=== PATIENT | male | born 1945 | race Caucasian/White ===

== ENCOUNTER 2020-02-13 11:45 | Inpatient (IN) ==
[2020-02-13] MEDS ORDERED: GuaiFENesin Liq 200 MG/10 ML UDC PO PRN (16:03)
[2020-02-13] MEDS: Nystatin SUSP 5 ML UD.LIQ PO SCH ×2 (16:45→19:44)
[2020-02-13] MEDS: Carbamide Peroxide 150 DROP/15 ML BOTTLE BOTH EARS SCH (19:44)
[2020-02-14] MEDS: *HR* Enoxaparin 40 MG/0.4 ML SYRINGE SQ SCH (05:19)
[2020-02-14 06:08] LABS: Basophils # 0.2 K/mcL (0.0-0.2); Basophils % 1.1 %; Eosinophils # 0.8 K/mcL (0.0-0.6); Eosinophils % 6.1 %; Hematocrit 38.1 % (37.5-50.1); Hemoglobin 12.3 g/dL (12.9-16.9); Immature Granulocytes % 0.4 % (0-4); Lymphocytes # 1.9 K/mcL (0.6-4.6); Lymphocytes % 14.3 %; Mean Corpuscular HGB Conc 32.3 g/dL (31.6-35.5); Mean Corpuscular Hemoglobin 31.6 pg (28.0-33.3); Mean Corpuscular Volume 97.9 fL (83.0-100.0); Monocytes # 1.5 K/mcL (0.0-1.3); Monocytes % 11.4 %; Neutrophils # 8.9 K/mcL (1.6-8.9); Platelet Count 405 K/mcL (140-400); Red Blood Count 3.89 M/mcL (4.19-5.50); Red Cell Distribution Width 16.2 % (11.5-14.5); Segmented Neutrophils % 66.7 %; White Blood Count 13.3 K/mcL (4.3-11.1)
[2020-02-14 08:05] LABS: Alanine Aminotransferase 28 Units/L (7-52); Albumin 3.2 g/dL (3.5-5.7); Albumin/Globulin Ratio 1.1 (1.1-2.2); Alkaline Phosphatase 113 Units/L (34-104); Aspartate Amino Transferase 41 Units/L (13-39); BUN/Creatinine Ratio 24 (6-26); Bilirubin,Total 0.9 mg/dL (0.3-1.0); Blood Urea Nitrogen 17 mg/dL (8-23); Calcium 8.7 mg/dL (8.6-10.3); Carbon Dioxide 18 mEq/L (23-29); Chloride 104 mEq/L (98-107); Globulin 2.9 g/dL (2.4-3.5); Glucose 75 mg/dL (70-105); Osmolality,Calculated 276 (280-300); Potassium 4.9 mEq/L (3.5-5.1); Sodium 133 mEq/L (136-145); Total Protein 6.1 g/dL (6.4-8.9); eGFR For African Americans > 60 (> 60); eGFR For Non-African Americans > 60 (> 60)
[2020-02-14] MEDS: Vitamin B Complex/Vit C/Vit E 1 EACH TABLET PO SCH (10:28)
[2020-02-14] MEDS: Aspirin Enteric Coated 81 MG Tablet PO SCH (10:28)
[2020-02-14] MEDS: amLODIPine 5 MG TABLET PO SCH (10:28)
[2020-02-14] MEDS: lisinopriL 10 MG TABLET PO SCH (10:28)
[2020-02-14] MEDS: Nystatin SUSP 5 ML UD.LIQ PO SCH ×4 (10:29→20:37)
[2020-02-14] MEDS: Carbamide Peroxide 150 DROP/15 ML BOTTLE BOTH EARS SCH ×2 (10:30→20:38)
[2020-02-14] MEDS: Nicotine 14 MG PATCH.TD24 TD SCH (10:30)
[2020-02-15] MEDS: *HR* Enoxaparin 40 MG/0.4 ML SYRINGE SQ SCH (05:15)
[2020-02-15] MEDS: lisinopriL 10 MG TABLET PO SCH (09:02)
[2020-02-15] MEDS: Vitamin B Complex/Vit C/Vit E 1 EACH TABLET PO SCH (09:02)
[2020-02-15] MEDS: Carbamide Peroxide 150 DROP/15 ML BOTTLE BOTH EARS SCH ×2 (09:02→20:41)
[2020-02-15] MEDS: amLODIPine 5 MG TABLET PO SCH (09:02)
[2020-02-15] MEDS: Aspirin Enteric Coated 81 MG Tablet PO SCH (09:02)
[2020-02-15] MEDS: Nystatin SUSP 5 ML UD.LIQ PO SCH ×4 (09:02→20:41)
[2020-02-15] MEDS: Nicotine 14 MG PATCH.TD24 TD SCH (09:03)
[2020-02-16] MEDS: *HR* Enoxaparin 40 MG/0.4 ML SYRINGE SQ SCH (05:30)
[2020-02-16 05:53] LABS: Hematocrit 36.7 % (37.5-50.1); Hemoglobin 12.2 g/dL (12.9-16.9); Mean Corpuscular HGB Conc 33.2 g/dL (31.6-35.5); Mean Corpuscular Hemoglobin 32.1 pg (28.0-33.3); Mean Corpuscular Volume 96.6 fL (83.0-100.0); Platelet Count 365 K/mcL (140-400); Red Cell Distribution Width 15.9 % (11.5-14.5); White Blood Count 8.6 K/mcL (4.3-11.1)
[2020-02-16 06:07] LABS: BUN/Creatinine Ratio 23 (6-26); Blood Urea Nitrogen 14 mg/dL (8-23); Calcium 8.6 mg/dL (8.6-10.3); Carbon Dioxide 25 mEq/L (23-29); Chloride 104 mEq/L (98-107); Glucose 90 mg/dL (70-105); Magnesium 1.8 mg/dL (1.6-2.6); Osmolality,Calculated 280 (280-300); Sodium 135 mEq/L (136-145); eGFR For African Americans > 60 (> 60); eGFR For Non-African Americans > 60 (> 60)
[2020-02-16] MEDS: Vitamin B Complex/Vit C/Vit E 1 EACH TABLET PO SCH (10:22)
[2020-02-16] MEDS: amLODIPine 5 MG TABLET PO SCH (10:22)
[2020-02-16] MEDS: Aspirin Enteric Coated 81 MG Tablet PO SCH (10:22)
[2020-02-16] MEDS: lisinopriL 10 MG TABLET PO SCH (10:22)
[2020-02-16] MEDS: Nicotine 14 MG PATCH.TD24 TD SCH (10:22)
[2020-02-16] MEDS: Nystatin SUSP 5 ML UD.LIQ PO SCH ×4 (10:23→20:45)
[2020-02-16] MEDS: Carbamide Peroxide 150 DROP/15 ML BOTTLE BOTH EARS SCH ×2 (10:25→20:46)
[2020-02-17] MEDS: *HR* Enoxaparin 40 MG/0.4 ML SYRINGE SQ SCH (04:48)
[2020-02-17] MEDS: amLODIPine 5 MG TABLET PO SCH (09:37)
[2020-02-17] MEDS: Vitamin B Complex/Vit C/Vit E 1 EACH TABLET PO SCH (09:37)
[2020-02-17] MEDS: lisinopriL 10 MG TABLET PO SCH (09:37)
[2020-02-17] MEDS: Nicotine 14 MG PATCH.TD24 TD SCH (09:37)
[2020-02-17] MEDS: Aspirin Enteric Coated 81 MG Tablet PO SCH (09:37)
[2020-02-17] MEDS: Nystatin SUSP 5 ML UD.LIQ PO SCH ×4 (09:37→19:41)
[2020-02-17] MEDS: Carbamide Peroxide 150 DROP/15 ML BOTTLE BOTH EARS SCH ×2 (09:45→19:42)
[2020-02-18] MEDS: *HR* Enoxaparin 40 MG/0.4 ML SYRINGE SQ SCH (05:43)
[2020-02-18] MEDS: Vitamin B Complex/Vit C/Vit E 1 EACH TABLET PO SCH (08:53)
[2020-02-18] MEDS: lisinopriL 10 MG TABLET PO SCH (08:53)
[2020-02-18] MEDS: amLODIPine 5 MG TABLET PO SCH (08:53)
[2020-02-18] MEDS: Aspirin Enteric Coated 81 MG Tablet PO SCH (08:53)
[2020-02-18] MEDS: Thiamine (B-1) 100 MG TABLET PO SCH (08:53)
[2020-02-18] MEDS: Nystatin SUSP 5 ML UD.LIQ PO SCH ×4 (08:53→20:46)
[2020-02-18] MEDS: Carbamide Peroxide 150 DROP/15 ML BOTTLE BOTH EARS SCH ×2 (08:54→20:46)
[2020-02-18] MEDS: Nicotine 14 MG PATCH.TD24 TD SCH (08:54)
[2020-02-19] MEDS: *HR* Enoxaparin 40 MG/0.4 ML SYRINGE SQ SCH (05:06)
[2020-02-19] MEDS: lisinopriL 10 MG TABLET PO SCH (08:06)
[2020-02-19] MEDS: Nystatin SUSP 5 ML UD.LIQ PO SCH ×4 (08:06→20:04)
[2020-02-19] MEDS: Aspirin Enteric Coated 81 MG Tablet PO SCH (08:06)
[2020-02-19] MEDS: Thiamine (B-1) 100 MG TABLET PO SCH (08:06)
[2020-02-19] MEDS: amLODIPine 5 MG TABLET PO SCH (08:06)
[2020-02-19] MEDS: Vitamin B Complex/Vit C/Vit E 1 EACH TABLET PO SCH (08:06)
[2020-02-19] MEDS: Nicotine 14 MG PATCH.TD24 TD SCH (08:21)
[2020-02-19] MEDS: Carbamide Peroxide 150 DROP/15 ML BOTTLE BOTH EARS SCH ×2 (08:21→20:04)
[2020-02-20] MEDS: *HR* Enoxaparin 40 MG/0.4 ML SYRINGE SQ SCH (05:42)
[2020-02-20 06:36] VITALS: BP 107/60
[2020-02-20] MEDS: Nicotine 14 MG PATCH.TD24 TD SCH (08:14)
[2020-02-20] MEDS: Nystatin SUSP 5 ML UD.LIQ PO SCH ×2 (08:32→11:41)
[2020-02-20] MEDS: Vitamin B Complex/Vit C/Vit E 1 EACH TABLET PO SCH (08:32)
[2020-02-20] MEDS: Thiamine (B-1) 100 MG TABLET PO SCH (08:32)
[2020-02-20] MEDS: Aspirin Enteric Coated 81 MG Tablet PO SCH (08:32)
[2020-02-20] MEDS: Carbamide Peroxide 150 DROP/15 ML BOTTLE BOTH EARS SCH (08:33)
[2020-02-20] MEDS: amLODIPine 5 MG TABLET PO SCH (09:13)
[2020-02-20] MEDS: lisinopriL 10 MG TABLET PO SCH (09:13)
== END 2020-02-20 13:19 | disposition home health service (06) | DRG 946 ==
LOC: INPGRE 15:43
PROVIDERS: ADMIT Family Medicine; ATTEND Family Medicine